=== PATIENT | female | born 1935 | race Caucasian/White ===

== ENCOUNTER 2016-12-24 10:14 | Observation (INO) | payer MEDICARE ==
[~2016-12-24] VITALS: Ht 170.2 cm; Wt 94.1 kg
--- NOTE | 2016-12-24 10:20 | NUR ---
Pt admitted to room 317 via ambulation direct admit from Dr. Almeida office. Gait steady, no c/o. Asks for a drink of water right away.
[2016-12-24 10:40] VITALS: BP 128/81
[2016-12-24] MEDS ORDERED: ACETAMINOPHEN 325 MG TAB (TYLENOL) PO PRN (11:00)
[2016-12-24] MEDS ORDERED: ONDANSETRON 2 MG/ML (Z0FRAN) 2 ML VIAL IV PRN (11:00)
[2016-12-24] MEDS ORDERED: SODIUM CHLORIDE 50 ML IV ONE (11:17)
[2016-12-24] MEDS: cefTRIAXone SODIUM 1,000 MG in SODIUM CHLORIDE 50 ML IV SCH (11:19)
[2016-12-24] MEDS ORDERED: NS FLUSH 3 ML PRN IV (11:20)
[2016-12-24] MEDS ORDERED: NS FLUSH 10 ML PRN IV (11:20)
[2016-12-24 11:21] VITALS: BP 128/81
--- NOTE | 2016-12-24 11:29 | NUR ---
UA sent to lab. Lab draw complete at this time: CBC, CMP. Rocephin infusing as ordered at this time. Zofran 4mg IV given for "slight nausea".
[2016-12-24 11:44] LABS: BASOPHILS % (AUTO) 0 % (0-2); EOSINOPHILS % (AUTO) 0 % (0-4); LYMPHOCYTES # (AUTO) 0.7 X10^3; MEAN CORPUSCULAR HEMOGLOBIN 29.6 PG (26.0-34.0); MEAN CORPUSCULAR HGB CONC 33.7 g/dL (31.0-37.0); MEAN CORPUSCULAR VOLUME 88 FL (80-100); MEAN PLATELET VOLUME 9.9 FL (6.0-9.5); MONOCYTES # (AUTO) 0.7 X10^3; MONOCYTES % (AUTO) 8 % (3-11); NEUTROPHILS # (AUTO) 7.8 X10^3; NEUTROPHILS % (AUTO) 84 % (51-67); PLATELET COUNT 214 10^3uL (150-450); WHITE BLOOD COUNT 9.25 10^3uL (4.0-11.0)
[2016-12-24 11:55] LABS: ALBUMIN 4.1 g/dL (3.4-5.0); ANION GAP 14.6 MEQ/L (3-15); CALCULATED IONIZED CALCIUM 4.4 mg/dL (3.8-4.6); TOTAL PROTEIN 7.5 g/dL (6.4-8.5)
[2016-12-24 13:54] VITALS: BP 128/81
--- NOTE | 2016-12-24 14:18 | NUR ---
Pt daughter/DPOA called this nurse for update- Questions answered. Will cont to monitor patient.
[2016-12-24 16:13] VITALS: BP 128/81
[2016-12-24 16:15] VITALS: BP 101/67
--- NOTE | 2016-12-24 17:33 | NUR ---
MED REC COMPLETED--current med list obtained from external med history application, retail pharmacy ([facility]), patient interview, and list provided by patient's PCP (Juan Pablo). Completed by Inna Burkett, Pharm. D. Candidate 2017.
[2016-12-24 20:16] VITALS: BP 101/67
--- NOTE | 2016-12-24 21:17 | NUR ---
Pt is resting in bed watching tv, alert and oriented x 4, Resp are even and nonlabored, LCTAB, HRRR, BS are active x 4 quadrants. SL is patent, no redness, swelling, or s/s of infection noted at this time. Pt denies pain or discomfort at this time. Call light is in reach. Will continue to monitor.
[2016-12-25] VITALS (9 sets, daily range): BP systolic 101–126; BP diastolic 63–68
--- NOTE | 2016-12-25 04:42 | NUR ---
Pt is resting in bed asleep, has denied pain or needs during this shift. Call light is in reach, will continue to monitor.
[2016-12-25 06:34] LABS: BASOPHILS % (AUTO) 0 % (0-2); EOSINOPHILS # (AUTO) 0.1 10^3uL; EOSINOPHILS % (AUTO) 1 % (0-4); LYMPHOCYTES # (AUTO) 2.5 X10^3; MEAN CORPUSCULAR HEMOGLOBIN 29.6 PG (26.0-34.0); MEAN CORPUSCULAR HGB CONC 33.3 g/dL (31.0-37.0); MEAN CORPUSCULAR VOLUME 89 FL (80-100); MEAN PLATELET VOLUME 10.4 FL (6.0-9.5); MONOCYTES # (AUTO) 0.9 X10^3; MONOCYTES % (AUTO) 11 % (3-11); NEUTROPHILS # (AUTO) 4.3 X10^3; NEUTROPHILS % (AUTO) 56 % (51-67); PLATELET COUNT 215 10^3uL (150-450); WHITE BLOOD COUNT 7.71 10^3uL (4.0-11.0)
[2016-12-25 07:22] LABS: ALBUMIN 3.3 g/dL (3.4-5.0); ANION GAP 10.2 MEQ/L (3-15); MAGNESIUM* 2.2 mg/dL (1.6-2.3); PHOSPHORUS 3.1 mg/dL (2.4-4.9)
--- NOTE | 2016-12-25 07:40 | NUR ---
Pt awake/alert/oriented x4, indep in room. Call appropriately for assist. Allergy bracelet placed. VSS. SL intact to [facility]- skin warm dry intact, pale. Resp even, nonlab. Remains on RA. call light within reach.
[2016-12-25] MEDS: LEVOTHYROXINE 150 MCG (LEVOTHROID) TABLET PO SCH (08:21)
[2016-12-25] MEDS: DILTIAZEM CD 180 MG (CARDIZEM CD) CAP PO SCH (08:21)
--- NOTE | 2016-12-25 08:21 | NUR ---
NUTRITION ASSESSMENT Level 1 Patient: Josefina More Age/Sex: 81/F Date Screened: 12-25-16 Weight: 207#/94.1 kg Height: 67 inches Primary Diagnosis: UTI Diet Order: 2 g. sodium Relevant labs: glucose 88 Food allergies: N Nutrition Assessment Criteria Age over 80: 4 points Body Mass Index (BMI) under 19: N Admission Screening Indicates Risk? 3 points Moderate/High Risk Diagnosis: N TPN or PPN: N NPO or clear liquid diet: N Serum Glucose <70 or >180: N Hgb A1c >6.7: N/A Total: 7 points Risk Screen: __ Patient at low nutritional risk based on available data; reevaluate in 5-7 days __ Patient at moderate nutritional risk based on available data; reevaluate in 3-5 days _X_ Patient at high nutritional risk; complete Nutrition Assessment within 48 hours of admission.
[2016-12-25] MEDS: predniSONE 10 MG (DELTASONE) TABLET PO SCH (08:22)
[2016-12-25] MEDS: LOSARTAN 25 MG (COZAAR) TABLET PO SCH (08:22)
[2016-12-25] MEDS: DABIGATRAN 150 MG (PRADAXA) CAPSULE PO SCH ×2 (08:37→20:48)
[2016-12-25] MEDS: NS FLUSH 3 ML DAILY IV SCH (08:38)
--- NOTE | 2016-12-25 09:34 | NUR ---
Pt in shower indep.
[2016-12-25] MEDS: cefTRIAXone SODIUM 1,000 MG in SODIUM CHLORIDE 50 ML IV SCH (09:52)
[2016-12-25 10:38] LABS: CLARITY,URINE Slightly Cloudy; COLOR,URINE Yellow
[2016-12-25 10:39] LABS: BILIRUBIN,URINE Negative (Negative); GLUCOSE, URINE (UA) Negative (Negative); LEUKOCYTE ESTERASE ,URINE 1+ (Negative); UROBILINOGEN,URINE 0.2 mg/dL (0.2-1.0)
[2016-12-25 10:42] LABS: URINE CENTRIFUGED VOLUME 12 mL
[2016-12-25 10:43] LABS: CALCIUM OXALATE CRYSTALS,UR 1+ /HPF; RBC,URINE 20-50 /HPF
--- NOTE | 2016-12-25 12:07 | NUR ---
NUTRITION ASSESSMENT Level II Patient: Josefina More Age/Sex: 81/F Date Assessed: 12-25-16 ASSESSMENT Pertinent History: Patient admitted with UTI and screened at high nutritional risk secondary to elderly age and poor appetite/intake with reports of feeling poorly since last hospitalization in 2015. PMHx includes CVA, a fib, anxiety, hyperglycemia, hypothyroidism, bullous pemphigoid, dysphagia, GERD and vitamin D deficiency. She lives alone at home but has support. Weight has been stable; last documented at 209# in 2015. She currently c/o poor appetite and nausea, but no vomiting. Meds/Nutrition: Prednisone, Synthroid Weight: 207#/94.1 kg Height: 67 inches Body Mass Index (BMI): 32.5 [place] Body Weight : 135#/61.3 kg % IBW: 153% GASTROINTESTINAL Appetite: improving, eating 75-90% Diet Order: 2 g. sodium Unintentional loss of >10 lbs. in 3 months: N Difficult to chew/swallow: N Diabetes: N Relevant Labs: glucose 88 Calculations for Nutritional Assessment Estimated calorie needs: 22-25 kcals/kg = 2,000-2,350 kcals (minus 500 for weight loss) Estimated protein needs: 1.0-1.3 g/kg ABW = 69-90 g./day DIAGNOSIS 1. Nutrition Diagnosis: Potential for inadequate intake related to acute illness as evidenced by reports of poor appetite/intake CHRONIC CARE NURSE and feeling poorly over the past month. NUTRITIONAL INTERVENTION Goal: Patient will receive adequate nutrition to meet her needs. Plan: Will provide 2 g. sodium diet as ordered and monitor intake for adequacy. Noted her appetite is already improving since admission; will continue to monitor and adjust menu as needed to best meet her needs. MONITORING & EVALUATION _X_ Monitor patients menu selections _X_ Monitor patients food intake per nursing notes __ Monitor NPO/clear liquid days __ Monitor lab values __ Monitor I&O __ Other
--- NOTE | 2016-12-25 17:52 | NUR ---
Pt sitting up at edge of bed, eating supper meal. Has ambulated multiple laps this afternoon. Verbalizes needs
--- NOTE | 2016-12-25 19:52 | NUR ---
Pt is resting in bed watching tv, alert and oriented x 4, Resp are even and nonlabored, LCTAB, HRRR, BS are active x 4 quadrants. SL is patent, no redness, swelling, or s/s of infection noted at this time. Denies pain or discomfort at this time. Call light is in reach, will continue to monitor.
[2016-12-26 00:22] VITALS: BP 129/76
[2016-12-26 02:23] VITALS: BP 129/76
--- NOTE | 2016-12-26 04:13 | NUR ---
Pt is resting in bed asleep, received PRN Ativan 0.5mg SIVP for anxiety at 2111, pt also received breathing treatment at this time. Pt reports she never had anxiety before, but she just gets so worked up. This RN stayed in room and visited with her until she was calm. Call light is in reach, will continue to monitor. Addendum: 12/26/16 at 0418 by Jaclyn Márquez RN This note was entered in error on wrong pt.
--- NOTE | 2016-12-26 04:18 | NUR ---
Pt is resting in bed asleep, has denied pain or discomfort during this shift. Call light is in reach, will continue to monitor.
[2016-12-26] MEDS: LEVOTHYROXINE 150 MCG (LEVOTHROID) TABLET PO SCH ×2 (05:53→10:05)
[2016-12-26 08:00] VITALS: BP 129/76
[2016-12-26 08:36] VITALS: BP 125/71
[2016-12-26] MEDS: NS FLUSH 3 ML DAILY IV SCH (09:00)
[2016-12-26] MEDS: DABIGATRAN 150 MG (PRADAXA) CAPSULE PO SCH (10:02)
[2016-12-26] MEDS: predniSONE 10 MG (DELTASONE) TABLET PO SCH (10:02)
[2016-12-26] MEDS: DILTIAZEM CD 180 MG (CARDIZEM CD) CAP PO SCH (10:02)
[2016-12-26] MEDS: LOSARTAN 25 MG (COZAAR) TABLET PO SCH (10:06)
[2016-12-26] MEDS: cefTRIAXone SODIUM 1,000 MG in SODIUM CHLORIDE 50 ML IV SCH (11:00)
[2016-12-26 12:14] VITALS: BP 125/71
--- NOTE | 2016-12-26 14:19 | NUR ---
Discharge instructions reviewed with patient, demonstrates understanding. SL removed with catheter tip intact. Skin warm, dry. Resprs nonlabored, even on RA. Pt up ad reynaldo in room. Belongings gathered.
--- NOTE | 2016-12-26 14:25 | NUR ---
Pt dismissed at this time via ambulation to private vehicle accompanied by Rao Zhang CNA. Belongings and DC packet sent with patient.
--- NOTE | 2016-12-26 14:25 | NUR ---
Reviewed discharge medications with patient. Provided patient handout information for new medication. No additional questions or concerns. Patient verbalized understanding of medications. Conducted by Rosa TannerD Candidate 2017.
== END 2016-12-26 14:27 | disposition home or self-care (01) ==
LOC: MED/SURG 10:14
PROVIDERS: ADMIT Family Medicine; ATTEND Family Medicine
DX: N39.0 Urinary tract infection, site not specified (principal); E86.0 Dehydration; N13.30 Unspecified hydronephrosis; I48.91 Unspecified atrial fibrillation; E03.9 Hypothyroidism, unspecified; L12.0 Bullous pemphigoid; I10 Essential (primary) hypertension; I67.9 Cerebrovascular disease, unspecified; B96.20 Unspecified Escherichia coli [E. coli] as the cause of diseases classified elsewhere; Z16.30 Resistance to unspecified antimicrobial drugs; Z79.02 Long term (current) use of antithrombotics/antiplatelets; Z79.82 Long term (current) use of aspirin
CPT/HCPCS: 36415; 76770; 80053; 80069; 81003; 81015; 83735; 84443; 85025; 87077; 87088; 87186; 96365; 96366; A9270; G0378; J0696; J2405; J7030; 99218

== ENCOUNTER → 2016-12-24 | Outpatient (REF) | payer MEDICARE | LOC: LAB 10:57 | PROVIDERS: ATTEND Nurse Practitioner Family | DX: Z53.8 Procedure and treatment not carried out for other reasons (principal) ==